=== PATIENT | female | born 2000 | race Caucasian/White ===

== ENCOUNTER 2018-12-01 04:15 | Emergency (ER) | payer OTHER ==
[~2018-12-01] VITALS: Ht 162.6 cm; Wt 64.7 kg
[2018-12-01 04:35] LABS: URINE HCG NEGATIVE (NEG)
[2018-12-01 04:40] LABS: CLARITY,URINE CLOUDY (Clear); COLOR,URINE YELLOW (Yellow); GLUCOSE, URINE NEGATIVE (Neg); KETONES,URINE TRACE mg/dl (Neg); LEUKOCYTE ESTERASE ,URINE LARGE (Neg); NITRITES, URINE NEGATIVE (Neg); OCCULT BLOOD,URINE TRACE-INTACT (Neg); PH,URINE 7.5 (4.8-8.0); PROTEIN,URINE NEGATIVE (Neg); UROBILINOGEN,URINE 0.2 E.U/dL (0.2-1.0)
[2018-12-01 04:44] LABS: UA COLLECTION TYPE CLN CATCH MIDSTREAM
[2018-12-01] MEDS ORDERED: HYDROcodone/acetaminophen 5mg/325mg tablet PO ONE (04:45)
[2018-12-01 04:46] LABS: SQUAMOUS EPITHELIAL CELL,UR MANY /LPF (FEW)
[2018-12-01 04:47] LABS: BACTERIA,URINE 1+ /HPF (Neg); RBC,URINE 0-2 /HPF (0-2); WBC,URINE 20-30 /HPF (0-4)
[2018-12-01 05:01] LABS: BASOPHILS % (AUTO) 0.5 % (0-1); EOSINOPHILS # (AUTO) 0.2 X10'3 (0-0.9); EOSINOPHILS % (AUTO) 2.8 % (0-6); HEMOGLOBIN 14.5 g/dl (12.0-16.0); LYMPHOCYTES # (AUTO) 3.8 X10'3 (1.1-4.8); LYMPHOCYTES % (AUTO) 47.3 % (21-51); MEAN CORPUSCULAR HEMOGLOBIN 29.2 PG (27.0-31.0); MEAN CORPUSCULAR HGB CONC 33.7 g/dL (33.0-36.5); MEAN CORPUSCULAR VOLUME 86.7 FL (78-98); MEAN PLATELET VOLUME 9.3 FL (7.4-10.4); MONOCYTES # (AUTO) 0.5 X10'3 (0-0.9); MONOCYTES % (AUTO) 6.4 % (2-12); NEUTROPHILS # (AUTO) 3.4 X10'3 (1.8-7.7); PLATELET COUNT 260 X10'3 (140-440); RED BLOOD COUNT 4.95 X10'6 (4.20-5.60); RED CELL DISTRIBUTION WIDTH 13.4 % (11.5-14.5)
[2018-12-01] MEDS ORDERED: ondansetron/PF 4mg/2ml inj IV ONE (05:05)
[2018-12-01 05:14] LABS: PROTHROMBIN TIME 9.8 SECONDS (9.0-12.0)
[2018-12-01 05:16] LABS: ALANINE AMINOTRANSFERASE 21 U/L (12-78); ALBUMIN 3.8 G/DL (3.4-5.0); ALKALINE PHOSPHATASE 40 IU/L (20-180); ANION GAP 9 (8-16); ASPARTATE AMINO TRANSFERASE 15 U/L (10-37); BILIRUBIN,TOTAL 0.1 MG/DL (0.1-1.0); BLOOD UREA NITROGEN 13 MG/DL (7-18); BUN/CREATININE RATIO 12.7 (6.6-38.0); CALCIUM 9.7 MG/DL (8.5-10.1); CHLORIDE 103 MMOL/L (99-107); CREATININE 1.02 MG/DL (0.40-0.90); GLUCOSE 95 MG/DL (70-104); LIPASE 155 U/L (73-393); POTASSIUM 3.4 MMOL/L (3.5-5.1); SODIUM 140 MMOL/L (135-145); TOTAL CARBON DIOXIDE 28.3 MMOL/L (24-32); TOTAL PROTEIN 7.8 G/DL (6.4-8.2); eGFR 69 ML/MIN
--- NOTE | 2018-12-01 05:47 | NUR ---
dr santo talking with pt and her mother. he reports uti but other normal labs. he will order abd us. pt with nor further nausea after zofran and able not to tolerate the norco tab.
--- NOTE | 2018-12-01 06:34 | NUR ---
GIDEON REORTS PT WNTS TO GO HOME AND DOES NOT WANT TO WAIT FOR US OF ABSDOMEN. DR. Benja PUGA.
[2018-12-01] MEDS ORDERED: CEPH-572 PO (07:59)
[2018-12-01 09:06] VITALS: BP 115/79
== END 2018-12-01 09:14 | disposition home or self-care (01) ==
LOC: ER 04:16
DX: N39.0 Urinary tract infection, site not specified (principal); R10.9 Unspecified abdominal pain; F17.200 Nicotine dependence, unspecified, uncomplicated
CPT/HCPCS: 36415; 76856; 80053; 81001; 81025; 83690; 85025; 85610; 96374; 99284; J2405